=== PATIENT | male | born 1995 | race Two or more races ===

== ENCOUNTER 2020-05-01 18:01 | Emergency (ER) | payer OTHER ==
[~2020-05-01] VITALS: Ht 165.1 cm; Wt 81.6 kg
[2020-05-01 18:31] VITALS: BP 141/83
== END 2020-05-01 19:07 | disposition home or self-care (01) ==
LOC: ER 18:01
DX: K05.30 Chronic periodontitis, unspecified (principal); K03.81 Cracked tooth